=== PATIENT | female | born 1980 | race American Indian/Alaskan Native ===

== ENCOUNTER 2017-03-14 19:15 | Emergency (ER) | payer MEDICAID, OTHER ==
[2017-03-14 19:32] VITALS: BP 131/71
--- NOTE | 2017-03-14 20:03 | EDM.PDOC ---
ED HPI GENERAL MEDICAL PROBLEM - General Chief Complaint: Chest Pain Stated Complaint: [id number] PAIN UNDER ARM Time Seen by Provider: 03/14/17 19:40 Source of Information: Reports: Patient History Limitations: Reports: No Limitations - History of Present Illness INITIAL COMMENTS - FREE TEXT/NARRATIVE: c/o of right chest pain starting under arm and extending to breast. Denies any change in activity, no injury,. Pain present on arising on Monday and has continued to worsen . 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: Endocrine/Metabolic History: Reports: Obesity/BMI 30+ - Past Surgical History Female Surgical History: Reports: Hysterectomy Social & Family History - Family History Family Medical History: Noncontributory - Tobacco Use Smoking Status *Q: Current Every Day Smoker Years of Tobacco use: 1 Packs/Tins Daily: 0.2 Second Hand Smoke Exposure: Yes - Caffeine Use Caffeine Use: Reports: Coffee, Soda - Alcohol Use Days Per Week of Alcohol Use: 0 - Recreational Drug Use Recreational Drug Use: No - Living Situation & Occupation Living situation: Reports: with Family ED ROS GENERAL - Review of Systems Review Of Systems: See Below Constitutional: Denies: Fever, Chills HEENT: Reports: No Symptoms Respiratory: Reports: No Symptoms Cardiovascular: Reports: No Symptoms Musculoskeletal: Reports: Other (pain to right anterior lateral chest worse with movment and position. Tender to touch and breast feels "puffy") Skin: Denies: No Symptoms ED EXAM, GENERAL - Physical Exam Exam: See Below Exam Limited By: No Limitations General Appearance: Alert, Moderate Distress Respiratory/Chest: Other (right axillary and lateral right breast lymphadenopathy, very tender with paslpation of area with tearing o eyes and guarding of area. slight warmth, no redness. no tenderness around areola, no redness under breast. .) Course - Vital Signs Last Recorded V/S: Last Vital Signs Temp 98.5 F 03/14/17 19:21 Pulse 71 03/14/17 19:21 Resp 18 03/14/17 19:21 BP 131/71 03/14/17 19:21 Pulse Ox 98 03/14/17 19:21 - Orders/Labs/Meds Meds: Medications Discontinued Medications Generic Name Dose Route Start Last Admin Trade Name Tammy PRN Reason Stop Dose Admin Hydrocodone Bitart/Acetaminophen 1 tab 03/14/17 20:06 03/14/17 20:15 [place] 325-10 Mg PO 03/14/17 20:07 1 tab ONETIME ONE Administration Doxycycline Hyclate 100 mg 03/14/17 20:06 03/14/17 20:15 Vibramycin PO 03/14/17 20:07 100 mg ONETIME ONE Administration Departure - Departure Time of Disposition: 20:05 Disposition: Home, Self-Care 01 Condition: Good Clinical Impression: Mastitis - Discharge Information Instructions: Breast Tenderness Forms: ED Department Discharge Additional Instructions: alternate tylenol 650mg with ibuprofen 600 every 4 hours as needed for discomfort warm pack to right breast doxycycline 100mg twice daily for one week follow up in clinic next week for recheck, if continued tenderness and swelling , ultrasound to be considered
[2017-03-14] MEDS ORDERED: Acetaminophen/HYDROcodone 325-10 MG Tab PO ONE (20:06)
[2017-03-14] MEDS ORDERED: Doxycycline 100 MG Cap PO ONE (20:06)
== END 2017-03-14 20:19 | disposition home or self-care (01) ==
LOC: DL.ED 19:15
DX: N61.0 Mastitis without abscess (principal); F17.210 Nicotine dependence, cigarettes, uncomplicated; Z90.710 Acquired absence of both cervix and uterus
CPT/HCPCS: 99283; A9270

== ENCOUNTER 2018-08-26 19:01 | Emergency (ER) | payer MEDICAID, OTHER ==
[2018-08-26] MEDS ORDERED: Sodium Chloride 0.9% 1,000 ML IV ONE (19:20)
[2018-08-26] MEDS ORDERED: LORazepam 2 MG/ML Syringe IVPUSH ONE (19:20)
[2018-08-26 19:27] VITALS: BP 172/93
[2018-08-26 20:22] LABS: ANION GAP 14.5; CHLORIDE,CL 102 mmol/L (101-111); SODIUM,NA 137 mmol/L (135-145)
--- NOTE | 2018-08-26 21:02 | EDM.PDOCBH ---
ED HPI GENERAL MEDICAL PROBLEM - General Chief Complaint: Drug or Alcohol Abuse Stated Complaint: UNKNOWN Time Seen by Provider: 08/26/18 19:20 Source of Information: Reports: Patient, RN Notes Reviewed History Limitations: Reports: No Limitations - History of Present Illness INITIAL COMMENTS - FREE TEXT/NARRATIVE: ED with c/o chest pressure , rapid heart , twitching anxiety. Admits to using IV meth twice today and taking 5 100mg tramadol, Took 3 then 2 again around 3 pm. Stated was caring for 2 year old granddaughter and needed some energy. Reported to regular but not "often" use of meth and daily use of Tramadol of usually 2 in am and 2 again in afternoon or evening. Has not been in treatment . Denied use of alcohol. Does not want daughters to know. Reported is aware today. Mid-Sternal Chest Pain Score (Numeric/FACES): 6 - Related Data Allergies Allergy/AdvReac Type Severity Reaction Status Date / Time No Known Allergies Allergy Verified 08/26/18 21:01 Home Meds: Home Meds . 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: Endocrine/Metabolic History: Reports: Obesity/BMI 30+ - Past Surgical History Female Surgical History: Reports: Hysterectomy Social & Family History - Family History Family Medical History: Noncontributory - Tobacco Use Smoking Status *Q: Current Every Day Smoker Years of Tobacco use: 20 Packs/Tins Daily: 0.5 Second Hand Smoke Exposure: Yes - Caffeine Use Caffeine Use: Reports: Coffee - Recreational Drug Use Recreational Drug Use: Yes Recreational Drug Type: Reports: Methamphetamine Recreational Drug Use Frequency: Daily - Living Situation & Occupation Living situation: Reports: with Family ED ROS GENERAL - Review of Systems Review Of Systems: ROS reveals no pertinent complaints other than HPI. ED EXAM, BEHAVIORAL HEALTH - Physical Exam Exam: See Below Exam Limited By: No Limitations General Appearance: Alert, Anxious, Mild Distress Eye Exam: Bilateral Eye: EOMI (5mm), PERRL Ears: Normal External Exam, Hearing Grossly Normal Nose: Normal Inspection Throat/Mouth: Normal Lips, Normal Voice, Other (rhythmic jaw movments). No: Normal Teeth (decay) Head: Atraumatic, Normocephalic Neck: Normal Inspection, Full Range of Motion Respiratory/Chest: No Respiratory Distress, Lungs Clear, Normal Breath Sounds Cardiovascular: Normal Peripheral Pulses, Regular Rate, Rhythm GI/Abdominal: Normal Bowel Sounds, Soft, Non-Tender, No Distention. No: Distended, Guarding Extremities: Other (track tee bilateral anticubital) Neurological: Alert, Normal Cognition, Oriented x 3 Psychiatric: Alert, Restless, Poor Eye Contact. No: Suicidal Plan, Suicidal Thoughts Skin Exam: Warm, Dry, Intact, Normal color, No rash EKG INTERPRETATION EKG Date: 08/27/18 Rhythm: NSR COURSE, BEHAVIORAL HEALTH COMP - Course Vital Signs: Last Vital Signs Temp 97.7 F 08/26/18 19:10 Pulse 102 H 08/26/18 19:10 Resp 22 H 08/26/18 19:10 BP 172/93 H 08/26/18 19:10 Pulse Ox 99 08/26/18 19:10 Orders, Labs, Meds: Active Orders 24 hr Category Date Time Status EKG 12 Lead [EKG Documentation Completion] [RC] STAT Care 08/26/18 19:38 Active CULTURE URINE [RM] Stat Lab 08/26/18 20:20 Received Laboratory Tests 08/26/18 08/26/18 08/26/18 Range/Units 19:53 19:53 19:53 WBC 7.2 (5.0-10.0) 10^3/uL RBC 4.85 (4.2-5.4) 10^6/uL Hgb 12.8 D (12.0-16.0) g/dL Hct 39.5 (37.0-47.0) % MCV 81.4 (80-100) fL MCH 26.4 L (27.0-34.0) pg MCHC 32.4 L (33.0-35.0) g/dL Plt Count 180 (150-450) 10^3/uL Neut % (Auto) 49.7 (42.2-75.2) % Lymph % (Auto) 36.9 (20.5-50.1) % [place] % (Auto) 10.1 H (2-8) % Eos % (Auto) 2.9 (1.0-3.0) % Baso % (Auto) 0.4 (0.0-1.0) % Add Manual Diff Yes Neutrophils % (Manual) 53 (42-75) % Lymphocytes % (Manual) 39 (20-50) % Monocytes % (Manual) 6 (2-8) % Eosinophils % (Manual) 2 (1-3) % Sodium 137 (135-145) mmol/L Potassium 3.5 L (3.6-5.0) mmol/L Chloride 102 (101-111) mmol/L Carbon Dioxide 24.0 (21.0-31.0) mmol/L Anion Gap 14.5 BUN 12 (7-18) mg/dL Creatinine 0.6 (0.6-1.3) mg/dL Est Cr Clr Drug Dosing 121.20 mL/min Estimated GFR (MDRD) > 60 BUN/Creatinine Ratio 20.00 Glucose 77 (74-105) mg/dL Calcium 8.2 L (8.4-10.2) mg/dl Magnesium 1.9 (1.8-2.5) mg/dL Total Bilirubin 0.5 (0.2-1.0) mg/dL AST 18 (10-42) IU/L ALT 17 (10-60) IU/L Alkaline Phosphatase 99 (42-121) IU/L CK-MB (CK-2) 2.00 (0.4-4.7) ng/mL Troponin I < 0.02 (0.00-0.02) ng/ml Total Protein 7.0 (6.7-8.2) g/dl Albumin 3.4 (3.2-5.5) g/dl Globulin 3.6 Albumin/Globulin Ratio 0.94 Amylase 26 L (28-100) U/L Urine Color (YELLOW) Urine Appearance (CLEAR) Urine pH (5.0-9.0) Ur Specific [place] (1.005-1.030) Urine Protein (NEGATIVE) Urine Glucose (UA) (NEGATIVE) Urine Ketones (NEGATIVE) Urine Occult Blood (NEGATIVE) Urine Nitrite (NEGATIVE) Urine Bilirubin (NEGATIVE) Urine Urobilinogen (0.2-1.0) mg/dL Ur Leukocyte Esterase (NEGATIVE) Urine RBC /HPF Urine WBC (0-5/HPF) /HPF Ur Epithelial Cells /HPF Amorphous Sediment (0/HPF) /HPF Urine Bacteria (0-FEW/HPF) /HPF Urine Opiates Screen (NEGATIVE) Ur Oxycodone Screen (NEGATIVE) Urine Methadone Screen (NEGATIVE) Ur Barbiturates Screen (NEGATIVE) U Tricyclic Antidepress (NEGATIVE) Ur Phencyclidine Scrn (NEGATIVE) Ur Amphetamine Screen (NEGATIVE) U Methamphetamines Scrn (NEGATIVE) Urine MDMA Screen (NEGATIVE) U Benzodiazepines Scrn (NEGATIVE) Urine Cocaine Screen (NEGATIVE) U Marijuana (THC) Screen (NEGATIVE) 08/26/18 08/26/18 Range/Units 20:20 20:20 WBC (5.0-10.0) 10^3/uL RBC (4.2-5.4) 10^6/uL Hgb (12.0-16.0) g/dL Hct (37.0-47.0) % MCV (80-100) fL MCH (27.0-34.0) pg MCHC (33.0-35.0) g/dL Plt Count (150-450) 10^3/uL Neut % (Auto) (42.2-75.2) % Lymph % (Auto) (20.5-50.1) % [place] % (Auto) (2-8) % Eos % (Auto) (1.0-3.0) % Baso % (Auto) (0.0-1.0) % Add Manual Diff Neutrophils % (Manual) (42-75) % Lymphocytes % (Manual) (20-50) % Monocytes % (Manual) (2-8) % Eosinophils % (Manual) (1-3) % Sodium (135-145) mmol/L Potassium (3.6-5.0) mmol/L Chloride (101-111) mmol/L Carbon Dioxide (21.0-31.0) mmol/L Anion Gap BUN (7-18) mg/dL Creatinine (0.6-1.3) mg/dL Est Cr Clr Drug Dosing mL/min Estimated GFR (MDRD) BUN/Creatinine Ratio Glucose (74-105) mg/dL Calcium (8.4-10.2) mg/dl Magnesium (1.8-2.5) mg/dL Total Bilirubin (0.2-1.0) mg/dL AST (10-42) IU/L ALT (10-60) IU/L Alkaline Phosphatase (42-121) IU/L CK-MB (CK-2) (0.4-4.7) ng/mL Troponin I (0.00-0.02) ng/ml Total Protein (6.7-8.2) g/dl Albumin (3.2-5.5) g/dl Globulin Albumin/Globulin Ratio Amylase (28-100) U/L Urine Color Yellow (YELLOW) Urine Appearance Turbid (CLEAR) Urine pH 7.0 (5.0-9.0) Ur Specific [place] 1.025 (1.005-1.030) Urine Protein Negative (NEGATIVE) Urine Glucose (UA) Negative (NEGATIVE) Urine Ketones Negative (NEGATIVE) Urine Occult Blood Negative (NEGATIVE) Urine Nitrite Positive H (NEGATIVE) Urine Bilirubin Negative (NEGATIVE) Urine Urobilinogen 0.2 (0.2-1.0) mg/dL Ur Leukocyte Esterase Negative (NEGATIVE) Urine RBC 0-5 /HPF Urine WBC 0-5 (0-5/HPF) /HPF Ur Epithelial Cells Moderate H /HPF Amorphous Sediment Few (0/HPF) /HPF Urine Bacteria Many H (0-FEW/HPF) /HPF Urine Opiates Screen Negative (NEGATIVE) Ur Oxycodone Screen Positive H (NEGATIVE) Urine Methadone Screen Negative (NEGATIVE) Ur Barbiturates Screen Negative (NEGATIVE) U Tricyclic Antidepress Negative (NEGATIVE) Ur Phencyclidine Scrn Negative (NEGATIVE) Ur Amphetamine Screen Positive H (NEGATIVE) U Methamphetamines Scrn Positive H (NEGATIVE) Urine MDMA Screen Positive H (NEGATIVE) U Benzodiazepines Scrn Negative (NEGATIVE) Urine Cocaine Screen Negative (NEGATIVE) U Marijuana (THC) Screen Positive H (NEGATIVE) Medications Discontinued Medications Generic Name Dose Route Start Last Admin Trade Name Freq PRN Reason Stop Dose Admin Sodium Chloride 1,000 mls @ 999 mls/hr 08/26/18 19:20 08/26/18 19:27 Normal Saline IV 08/26/18 20:20 999 mls/hr .BOLUS ONE Administration Lorazepam 1 mg 08/26/18 19:20 08/26/18 19:27 Ativan IVPUSH 08/26/18 19:21 1 mg ONETIME ONE Administration Departure - Departure Time of Disposition: 20:59 Disposition: Home, Self-Care 01 Condition: Good Clinical Impression: Polysubstance abuse, IVDU (intravenous drug user) - Discharge Information *PRESCRIPTION DRUG MONITORING PROGRAM REVIEWED*: No *COPY OF PRESCRIPTION DRUG MONITORING REPORT IN PATIENT CLAUDY: No Instructions: Substance Use Disorder and Mental Illness Forms: ED Department Discharge Additional Instructions: stop abusing drugs follow up with addiction and mental health counselor rest increase fluids avoid caffeine or energy drinks - My Orders Last 24 Hours: My Active Orders 08/26/18 19:38 EKG 12 Lead [EKG Documentation Completion] [RC] STAT 08/26/18 20:20 CULTURE URINE [] Stat - Assessment/Plan Last 24 Hours: My Active Orders 08/26/18 19:38 EKG 12 Lead [EKG Documentation Completion] [RC] STAT 08/26/18 20:20 CULTURE URINE [] Stat
== END 2018-08-26 21:10 | disposition home or self-care (01) ==
LOC: DL.ED 19:01
DX: F19.10 Other psychoactive substance abuse, uncomplicated (principal); F15.10 Other stimulant abuse, uncomplicated; E66.9 Obesity, unspecified; F17.210 Nicotine dependence, cigarettes, uncomplicated; Z90.710 Acquired absence of both cervix and uterus
CPT/HCPCS: 36415; 80053; 80305; 81001; 82150; 82553; 83735; 84484; 85025; 87086; 93005; 96365; 96375; 99285; J2060; J7030; 87088; 87186

== ENCOUNTER 2019-12-29 16:46 | Emergency (ER) | payer MEDICAID, OTHER ==
[2019-12-29 17:02] VITALS: BP 146/98; PULSE 93
[2019-12-29] MEDS ORDERED: Ketorolac 30 MG/ML SDV IM ONE (17:08)
--- NOTE | 2019-12-29 17:30 | CR ---
PROCEDURE INFORMATION: Exam: XR Left Ribs with PA Chest, 3 Views Exam date and time: 12/29/2019 5:12 PM Age: 39 years old Clinical indication: Other: Bb tee area of pain--no known trauma; Additional info: Left anterior/lateral chest wall pain TECHNIQUE: Imaging protocol: XR Left ribs 3 views with PA chest. COMPARISON: CR CHEST PA/LAT 04/02/2011 4:38 PM FINDINGS: Lungs: The visualized lung patel are clear. Pleural space: No pneumothorax. No evidence of pleural effusion. Heart/Mediastinum: Visualized mediastinal structures are unremarkable. Bones/joints: No definite acute fractures are identified. A metallic BB marker was placed at the site of clinical suspicion/pain. This projects near the end of the lateral left 11th rib. There is some questionable slight lateral cortical irregularity of the 11th rib in this region which might represent a nondisplaced rib fracture although this is not definitive. There is a chronic appearing fracture involving the left anterolateral 5th rib, with hypertrophic callus. No blastic or lytic lesions. Glenohumeral alignment and a.c. joint alignment are normal. Other findings: Visualized upper abdominal structures are unremarkable. IMPRESSION: 1. No definite acute fractures. 2. Questionable slight superficial contour irregularity in the left lateral 11th rib near the BB marker which might represent a nondisplaced rib fracture although this is not definitive. 3. Chronic appearing fracture of the left anterolateral 5th rib with callus formation.
[2019-12-29 17:47] LABS: ANION GAP 10.7 mEq/L (7-13); CHLORIDE,CL 103 mmol/L (98-107); SODIUM,NA 139 mmol/L (136-145)
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
== END 2019-12-29 18:15 | disposition home or self-care (01) ==
LOC: DL.ED 16:46
DX: S22.32XD Fracture of one rib, left side, subsequent encounter for fracture with routine healing (principal); E66.9 Obesity, unspecified; F17.210 Nicotine dependence, cigarettes, uncomplicated; Z68.34 Body mass index [BMI] 34.0-34.9, adult; X58.XXXA Exposure to other specified factors, initial encounter
CPT/HCPCS: 36415; 71101; 80053; 80305; 81003; 81025; 85025; 85379; 96372; 99283; J1885

== ENCOUNTER 2020-07-26 20:08 | Emergency (ER) | payer SELFPAY ==
[2020-07-26] MEDS ORDERED: Iopamidol 612 MG/ML 100 ML Bottle IVPUSH ONE (20:26)
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
[2020-07-26 21:00] VITALS: BP 127/79; PULSE 91
[2020-07-26 21:00] LABS: PTT,PARTIAL THROMBOPLSTIN TIME 25.7 SEC (22.0-34.0)
[2020-07-26 21:01] LABS: ANION GAP 10.4 mEq/L (7-13); CHLORIDE,CL 104 mmol/L (98-107); SODIUM,NA 141 mmol/L (136-145)
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
[2020-07-26] MEDS ORDERED: Acetaminophen/HYDROcodone 325-10 MG Tab PO ONE (21:46)
== END 2020-07-26 22:09 | disposition home or self-care (01) ==
LOC: DL.ED 20:08
DX: S32.029A Unspecified fracture of second lumbar vertebra, initial encounter for closed fracture (principal); S80.02XA Contusion of left knee, initial encounter; E66.9 Obesity, unspecified; Z68.34 Body mass index [BMI] 34.0-34.9, adult; X58.XXXA Exposure to other specified factors, initial encounter
CPT/HCPCS: 36415; 70450; 71260; 72125; 73560; 74177; 80053; 80307; 85025; 85610; 85730; 99284; A9270; Q9967

== ENCOUNTER 2020-11-07 12:11 | Emergency (ER) | payer SELFPAY ==
[2020-11-07 12:47] VITALS: BP 114/58; PULSE 96
[2020-11-07] MEDS ORDERED: Sodium Chloride 0.9% 1,000 ML IV ONE (12:56)
[2020-11-07 13:48] LABS: ANION GAP 14.1 mEq/L (7-13); CHLORIDE,CL 109 mmol/L (98-107); SODIUM,NA 147 mmol/L (136-145)
[2020-11-07] MEDS ORDERED: 50% Dextrose in Water 50 ML Syringe IVPUSH ONE ×2 (13:49→14:24)
[2020-11-07 13:50] LABS: ACETAMINOPHEN 0 ug/mL (10-30 (Therapeutic))
[2020-11-07] MEDS ORDERED: 50% Dextrose in Water 50 ML Syringe ONE (13:50)
[2020-11-07] MEDS ORDERED: Potassium Chloride 20 MEQ in Premix Bag 1 BAG IV ONE (13:54)
--- NOTE | 2020-11-07 14:05 | EDM.PDOC ---
ED HPI GENERAL MEDICAL PROBLEM - General Chief Complaint: Drug or Alcohol Abuse Stated Complaint: BY AMBULANCE Time Seen by Provider: 11/07/20 12:35 Source of Information: Reports: EMS, EMS Notes Reviewed, RN, RN Notes Reviewed History Limitations: Reports: Altered Mental Status - History of Present Illness INITIAL COMMENTS - FREE TEXT/NARRATIVE: Shelley is a 40 y/o female who presents to the ED via [facility] due to family complaints of altered mental status. Per EMS report, the patient's called dispatch with complaints of being unable to wake his . The patient's reported she was alert, talkative, and well this morning when he left for work but noted she was very sleepy and could not maintain a conversation when he returned home for lunch. The patient's did not feel there was any trauma or fall during his time gone as she was resting on the couch when he came home. He denies history of cardiac events, stroke, chronic health conditions, or recent illness. The patient's reports to EMS that the patient does use methamphetamines occasionally; he is unsure if she has used today. BS en route 229. Narcan administered by EMS en route x2; no significant response noted. Upon arrival to this facility the patient's GCS is 13; she is lethargic but opens her eyes to voice and is able to state her name, she is disoriented to time, place, and situation. No evidence of trauma, including no scalp/facial/chest/back/extremity hematoma, abrasion, ecchymosis, laceration, or deformity. - Related Data Allergies Allergy/AdvReac Type Severity Reaction Status Date / Time No Known Allergies Allergy Verified 11/07/20 12:48 Home Meds: Home Meds . [No Known Home Meds] 01/06/16 [History] Past Medical History Cardiovascular History: Reports: Heart Murmur [employer] History: Reports: Endocrine/Metabolic History: Reports: Obesity/BMI 30+ Dermatologic History: Reports: None - Past Surgical History Female Surgical History: Reports: Hysterectomy Social & Family History - Family History Family Medical History: No Pertinent Family History - Tobacco Use Tobacco Use Status *Q: Never Tobacco User Second Hand Smoke Exposure: No - Caffeine Use Caffeine Use: Reports: Soda - Recreational Drug Use Recreational Drug Use: No - Living Situation & Occupation Living situation: Reports: with Family ED ROS GENERAL - Review of Systems Review Of Systems: Unable To Obtain Reason Not Obtained: AMS - Physical Exam Exam: See Below Exam Limited By: Altered Mental Status General Appearance: Lethargic Eye Exam: Bilateral Eye: PERRL (4mm), Other (Unable to assess d/t AMS) Ears: Normal External Exam, Normal Canal, Hearing Grossly Normal, Normal TMs Nose: Normal Inspection, Normal Mucosa, No Blood Throat/Mouth: Normal Gums, Normal Voice, No Airway Compromise. No: Normal Lips (Dry cracked), Normal Teeth (Poor dentition), Normal Oropharynx (Dry mucous membranes), Evidence of Tongue Biting Head Exam: Atraumatic, Normocephalic Neck: Normal Inspection, Supple, Non-Tender, Full Range of Motion. No: Lymphadenopathy (L), Lymphadenopathy (R) Respiratory/Chest: No Respiratory Distress, Lungs Clear, No Accessory Muscle Use, Chest Non-Tender, Other (Snoring respirations) Cardiovascular: Normal Peripheral Pulses, Regular Rate, Rhythm, No Edema, No Gallop, No JVD, No Murmur, No Rub GI/Abdominal: Soft, Non-Tender, No Organomegaly, No Distention, No Abnormal Bruit, No Mass, Pelvis Stable, Abnormal Bowel Sounds (Hypoactive bowel sounds) (Female) Exam: Deferred Rectal (Female) Exam: Deferred Neuro Exam (Abbreviated): Disoriented, Slow to Respond, Memory Loss Remote Antonia nts, Memory Loss Recent Events, Sensory/Motor Deficit Back Exam: Normal Inspection, Full Range of Motion. No: CVA Tenderness (L), CVA Tenderness (R) Extremities: Normal Inspection, Normal Range of Motion, Non-Tender, No Pedal Edema, Normal Capillary Refill Skin Exam: Warm, Dry, Intact, Normal Color, No Rash. No: Ecchymosis, Erythema, Jaundice, Mottled, Pallor, Petechiae, Wound/Incision #1 Interpretation EKG Date: 11/07/20 Time: 13:58 Rhythm: Other (Sinus Tachycardia) Rate (Beats/Min): 101 [place]lin: LAD-Left Hamlin Deviation P-Wave: Present QRS: RBBB ST-T: Normal QT: Normal PA/PQ Interval: 0.203 Comparison: No Change EKG Interpretation Comments: Sinus Tachycardia; No evidence of acute myocardial ischemia Course - Vital Signs Last Recorded V/S: Last Vital Signs Temp 97.3 F 0515/21 12:34 Pulse 96 11/07/20 12:46 Resp 15 11/07/20 12:46 BP 114/58 L 11/07/20 12:46 Pulse Ox 95 11/07/20 12:46 - Orders/Labs/Meds Labs: Laboratory Tests 11/07/20 11/07/20 11/07/20 Range/Units 13:15 13:15 13:15 WBC 17.0 H (5.0-10.0) 10^3/uL RBC 5.02 (4.2-5.4) 10^6/uL Hgb 13.0 (12.0-16.0) g/dL Hct 42.4 (37.0-47.0) % MCV 84.5 (80-100) fL MCH 25.9 L (27.0-34.0) pg MCHC 30.7 L (33.0-35.0) g/dL Plt Count 202 (150-450) 10^3/uL Neut % (Auto) 88.3 H (42.2-75.2) % Lymph % (Auto) 7.1 L (20.5-50.1) % [place] % (Auto) 4.4 (2-8) % Eos % (Auto) 0.1 L (1.0-3.0) % Baso % (Auto) 0.1 (0.0-1.0) % Sodium 147 H (136-145) mmol/L Potassium 3.1 L (3.5-5.1) mmol/L Chloride 109 H (98-107) mmol/L Carbon Dioxide 27 (21-32) mmol/L Anion Gap 14.1 H (7-13) mEq/L BUN 19 H (7-18) mg/dL Creatinine 1.08 H (0.55-1.02) mg/dL Est Cr Clr Drug Dosing TNP Estimated GFR (MDRD) 56 BUN/Creatinine Ratio 17.6 (No establ ref range) Glucose 23 L* (70-99) mg/dL POC Glucose (70-99) mg/dL Lactic Acid (0.4-2.0) mmol/L Calcium 7.7 L (8.5-10.1) mg/dL Total Bilirubin 0.4 (0.2-1.0) mg/dL AST 165 H (15-37) U/L ALT 103 H (14-59) U/L Alkaline Phosphatase 147 H (46-116) U/L Ammonia (11-32) umol/L Troponin I 0.381 H* (0.000-0.056) ng/mL Total Protein 7.0 (6.4-8.2) g/dL Albumin 3.1 L (3.4-5.0) g/dL Globulin 3.9 Albumin/Globulin Ratio 0.79 Salicylates < 2.8 L (2.8-20(Therapeutic)) mg/dL Urine Opiates Screen (NEGATIVE) Ur Oxycodone Screen (NEGATIVE) Urine Methadone Screen (NEGATIVE) Acetaminophen 0 L (10-30 (Therapeutic)) ug/mL Ur Barbiturates Screen (NEGATIVE) U Tricyclic Antidepress (NEGATIVE) Ur Phencyclidine Scrn (NEGATIVE) Ur Amphetamine Screen (NEGATIVE) U Methamphetamines Scrn (NEGATIVE) Urine MDMA Screen (NEGATIVE) U Benzodiazepines Scrn (NEGATIVE) Urine Cocaine Screen (NEGATIVE) U Marijuana (THC) Screen (NEGATIVE) Ethyl Alcohol 3 (0) mg/dL 11/07/20 11/07/20 11/07/20 Range/Units 14:01 14:03 14:23 WBC (5.0-10.0) 10^3/uL RBC (4.2-5.4) 10^6/uL Hgb (12.0-16.0) g/dL Hct (37.0-47.0) % MCV (80-100) fL MCH (27.0-34.0) pg MCHC (33.0-35.0) g/dL Plt Count (150-450) 10^3/uL Neut % (Auto) (42.2-75.2) % Lymph % (Auto) (20.5-50.1) % [place] % (Auto) (2-8) % Eos % (Auto) (1.0-3.0) % Baso % (Auto) (0.0-1.0) % Sodium (136-145) mmol/L Potassium (3.5-5.1) mmol/L Chloride (98-107) mmol/L Carbon Dioxide (21-32) mmol/L Anion Gap (7-13) mEq/L BUN (7-18) mg/dL Creatinine (0.55-1.02) mg/dL Est Cr Clr Drug Dosing Estimated GFR (MDRD) BUN/Creatinine Ratio (No establ ref range) Glucose (70-99) mg/dL POC Glucose 144 H 65 L (70-99) mg/dL Lactic Acid (0.4-2.0) mmol/L Calcium (8.5-10.1) mg/dL Total Bilirubin (0.2-1.0) mg/dL AST (15-37) U/L ALT (14-59) U/L Alkaline Phosphatase (46-116) U/L Ammonia (11-32) umol/L Troponin I (0.000-0.056) ng/mL Total Protein (6.4-8.2) g/dL Albumin (3.4-5.0) g/dL Globulin Albumin/Globulin Ratio Salicylates (2.8-20(Therapeutic)) mg/dL Urine Opiates Screen Negative (NEGATIVE) Ur Oxycodone Screen Negative (NEGATIVE) Urine Methadone Screen Negative (NEGATIVE) Acetaminophen (10-30 (Therapeutic)) ug/mL Ur Barbiturates Screen Negative (NEGATIVE) U Tricyclic Antidepress Negative (NEGATIVE) Ur Phencyclidine Scrn Negative (NEGATIVE) Ur Amphetamine Screen Positive H (NEGATIVE) U Methamphetamines Scrn Positive H (NEGATIVE) Urine MDMA Screen Negative (NEGATIVE) U Benzodiazepines Scrn Negative (NEGATIVE) Urine Cocaine Screen Negative (NEGATIVE) U Marijuana (THC) Screen Positive H (NEGATIVE) Ethyl Alcohol (0) mg/dL 11/07/20 11/07/20 11/07/20 Range/Units 14:43 14:58 14:58 WBC (5.0-10.0) 10^3/uL RBC (4.2-5.4) 10^6/uL Hgb (12.0-16.0) g/dL Hct (37.0-47.0) % MCV (80-100) fL MCH (27.0-34.0) pg MCHC (33.0-35.0) g/dL Plt Count (150-450) 10^3/uL Neut % (Auto) (42.2-75.2) % Lymph % (Auto) (20.5-50.1) % [place] % (Auto) (2-8) % Eos % (Auto) (1.0-3.0) % Baso % (Auto) (0.0-1.0) % Sodium (136-145) mmol/L Potassium (3.5-5.1) mmol/L Chloride (98-107) mmol/L Carbon Dioxide (21-32) mmol/L Anion Gap (7-13) mEq/L BUN (7-18) mg/dL Creatinine (0.55-1.02) mg/dL Est Cr Clr Drug Dosing Estimated GFR (MDRD) BUN/Creatinine Ratio (No establ ref range) Glucose (70-99) mg/dL POC Glucose 142 H (70-99) mg/dL Lactic Acid 1.5 (0.4-2.0) mmol/L Calcium (8.5-10.1) mg/dL Total Bilirubin (0.2-1.0) mg/dL AST (15-37) U/L ALT (14-59) U/L Alkaline Phosphatase (46-116) U/L Ammonia (11-32) umol/L Troponin I 0.778 H* (0.000-0.056) ng/mL Total Protein (6.4-8.2) g/dL Albumin (3.4-5.0) g/dL Globulin Albumin/Globulin Ratio Salicylates (2.8-20(Therapeutic)) mg/dL Urine Opiates Screen (NEGATIVE) Ur Oxycodone Screen (NEGATIVE) Urine Methadone Screen (NEGATIVE) Acetaminophen (10-30 (Therapeutic)) ug/mL Ur Barbiturates Screen (NEGATIVE) U Tricyclic Antidepress (NEGATIVE) Ur Phencyclidine Scrn (NEGATIVE) Ur Amphetamine Screen (NEGATIVE) U Methamphetamines Scrn (NEGATIVE) Urine MDMA Screen (NEGATIVE) U Benzodiazepines Scrn (NEGATIVE) Urine Cocaine Screen (NEGATIVE) U Marijuana (THC) Screen (NEGATIVE) Ethyl Alcohol (0) mg/dL 11/07/20 11/07/20 Range/Units 14:58 15:05 WBC (5.0-10.0) 10^3/uL RBC (4.2-5.4) 10^6/uL Hgb (12.0-16.0) g/dL Hct (37.0-47.0) % MCV (80-100) fL MCH (27.0-34.0) pg MCHC (33.0-35.0) g/dL Plt Count (150-450) 10^3/uL Neut % (Auto) (42.2-75.2) % Lymph % (Auto) (20.5-50.1) % [place] % (Auto) (2-8) % Eos % (Auto) (1.0-3.0) % Baso % (Auto) (0.0-1.0) % Sodium (136-145) mmol/L Potassium (3.5-5.1) mmol/L Chloride (98-107) mmol/L Carbon Dioxide (21-32) mmol/L Anion Gap (7-13) mEq/L BUN (7-18) mg/dL Creatinine (0.55-1.02) mg/dL Est Cr Clr Drug Dosing Estimated GFR (MDRD) BUN/Creatinine Ratio (No establ ref range) Glucose (70-99) mg/dL POC Glucose 69 L (70-99) mg/dL Lactic Acid (0.4-2.0) mmol/L Calcium (8.5-10.1) mg/dL Total Bilirubin (0.2-1.0) mg/dL AST (15-37) U/L ALT (14-59) U/L Alkaline Phosphatase (46-116) U/L Ammonia 14 (11-32) umol/L Troponin I (0.000-0.056) ng/mL Total Protein (6.4-8.2) g/dL Albumin (3.4-5.0) g/dL Globulin Albumin/Globulin Ratio Salicylates (2.8-20(Therapeutic)) mg/dL Urine Opiates Screen (NEGATIVE) Ur Oxycodone Screen (NEGATIVE) Urine Methadone Screen (NEGATIVE) Acetaminophen (10-30 (Therapeutic)) ug/mL Ur Barbiturates Screen (NEGATIVE) U Tricyclic Antidepress (NEGATIVE) Ur Phencyclidine Scrn (NEGATIVE) Ur Amphetamine Screen (NEGATIVE) U Methamphetamines Scrn (NEGATIVE) Urine MDMA Screen (NEGATIVE) U Benzodiazepines Scrn (NEGATIVE) Urine Cocaine Screen (NEGATIVE) U Marijuana (THC) Screen (NEGATIVE) Ethyl Alcohol (0) mg/dL Meds: Medications Discontinued Medications Generic Name Dose Route Start Last Admin Trade Name Freq PRN Reason Stop Dose Admin Dextrose/Water 50 ml 11/07/20 13:49 11/07/20 13:53 50% Dextrose In Water 50 Ml Syringe IVPUSH 11/07/20 13:50 50 ml ONETIME ONE Administration Dextrose/Water Confirm 11/07/20 13:50 11/07/20 14:20 50% Dextrose In Water 50 Ml Syringe Administered 11/07/20 13:51 Not Given Dose 50 ml .ROUTE .STK-MED ONE Dextrose/Water 50 ml 11/07/20 14:24 11/07/20 14:28 50% Dextrose In Water 50 Ml Syringe IVPUSH 11/07/20 14:25 50 ml ONETIME ONE Administration Sodium Chloride 1,000 mls @ 999 mls/hr 11/07/20 12:56 11/07/20 13:10 Normal Saline IV 11/07/20 13:56 999 mls/hr .BOLUS ONE Administration Potassium Chloride 20 meq/ 100 mls @ 50 mls/hr 11/07/20 13:54 11/07/20 14:28 Premix IV 11/07/20 15:53 50 mls/hr ONETIME ONE Administration Dextrose/Water 500 mls @ 125 mls/hr 11/07/20 14:35 11/07/20 14:52 Dextrose 10% In Water IV 11/07/20 18:34 125 mls/hr ONETIME ONE Administration - Re-Assessments/Exams Free Text/Narrative Re-Assessment/Exam: 11/07/20 Critical value from lab called; blood glucose on CMP 23 - D50 administered IVP. WBC 17 with left shift. No evidence of anemia via CBC with Hgb 13. Sodium 147. Potassium 3.1; will replace via IVPB. Kidney function slightly reduced with creatinine 1.08, BUN 19, and GFR 56. Liver enzymes elevated with AST 165, ALT 103, and Alk Phos 147. 15 minute POC BS 144. Will recheck again in [address] with no evidence of acute myocardial ischemia. Troponin elevated at 0.3. Patient in and out of Ventricular Bigeminy on bedside monitor. Recheck of POC BS 65. Additional dose of D50 administered. Case discussed with Lazaro, ED physician at [facility] in [place] who kindly agreed to accept patient for transfer. Will hang D10 at 125 mL/hr for transfer. Will obtain head CT prior to transfer at the request of accepting physician as patient remains stable. Patient to transfer via [facility]. Head CT negative for acute processes Tox screen resulted post-discharge; positive for methamphetamines, amphetamines, and THC. Acetaminophen and Salicylates negative. ETOH 3 Patient's to ED post-transfer. Updated on findings of examination, imaging, and lab work as well as transfer to [place]. Patient's verbalized understanding and agreement with the plan of care. Departure - Departure Time of Disposition: 16:47 Disposition: DC/Tfer to Acute Hospital 02 Condition: Fair Clinical Impression: Elevated troponin, Elevated liver enzymes, Ventricular bigeminy Altered mental status Qualifiers: Altered mental status type: unspecified Qualified Code(s): R41.82 - Altered mental status, unspecified - Discharge Information Referrals: PCP,None [Primary Care Provider] - Forms: ED Department Discharge, Interfacility Transfer [facility] Sepsis Event Note (ED) - Evaluation Sepsis Screening Result: No Definite Risk
[2020-11-07] MEDS ORDERED: Dextrose 10% in Water 500 ML IV ONE (14:35)
--- NOTE | 2020-11-07 15:27 | CT ---
PROCEDURE INFORMATION: Exam: CT Head Without Contrast Exam date and time: 11/07/2020 2:56 PM Age: 40 years old Clinical indication: Altered mental status/memory loss; Confusion or disorientation TECHNIQUE: Imaging protocol: Computed tomography of the head without contrast. Radiation optimization: All CT scans at this facility use at least one of these dose optimization techniques: automated exposure control; mA and/or kV adjustment per patient size (includes targeted exams where dose is matched to clinical indication); or iterative reconstruction. COMPARISON: CT Head wo Cont 07/26/2020 8:41 PM FINDINGS: Brain: Normal. No hemorrhage. Unremarkable white matter. No mass effect. Cerebral ventricles: No ventriculomegaly. Bones/joints: Unremarkable. No acute fracture. Paranasal sinuses: Visualized sinuses are unremarkable. No fluid levels. Mastoid air cells: Visualized mastoid air cells are well aerated. Soft tissues: Unremarkable. IMPRESSION: No acute intracranial abnormality.
== END 2020-11-07 15:20 ==
LOC: DL.ED 12:11
DX: R41.82 Altered mental status, unspecified (principal); R79.89 Other specified abnormal findings of blood chemistry; R74.8 Abnormal levels of other serum enzymes; R00.8 Other abnormalities of heart beat; E66.9 Obesity, unspecified
CPT/HCPCS: 36415; 70450; 80053; 80143; 80179; 80305-QW; 80307; 82140; 82947; 83605; 84484; 85025; 93005; 93010; 96365; 96375; 96376; 99284; 99285-25; J3480; J7030

== ENCOUNTER 2021-05-18 21:37 | Emergency (ER) | payer SELFPAY ==
[2021-05-18] MEDS ORDERED: Sodium Chloride 0.9% 1,000 ML IV ONE (21:50)
[2021-05-18 21:53] VITALS: BP 143/86; PULSE 107
[2021-05-18 22:29] LABS: AMPHETAMINES,URINE POSITIVE (NEGATIVE); BARBITURATES,URINE NEGATIVE (NEGATIVE); BENZODIAZEPINE,URINE NEGATIVE (NEGATIVE); MDMA (ECSTASY), URINE POSITIVE (NEGATIVE); METHADONE,URINE NEGATIVE (NEGATIVE); METHAMPHETAMINES,URINE POSITIVE (NEGATIVE); OPIATES,URINE NEGATIVE (NEGATIVE); OXYCODONE,URINE POSITIVE (NEGATIVE); PHENCYCLIDINE,URINE NEGATIVE (NEGATIVE); TCA,URINE NEGATIVE (NEGATIVE)
[2021-05-18 22:38] LABS: ANION GAP 15.3 mEq/L (7-13); CHLORIDE,CL 103 mmol/L (98-107); SODIUM,NA 138 mmol/L (136-145)
[2021-05-18] MEDS ORDERED: Iopamidol 612 MG/ML 100 ML Bottle IVPUSH ONE (22:44)
[2021-05-18] MEDS ORDERED: Famotidine 20 MG/2 ML SDV IVPUSH ONE (23:21)
[2021-05-18] MEDS ORDERED: Ondansetron 4 MG/2 ML SDV IVPUSH ONE (23:21)
[2021-05-18] MEDS ORDERED: Famotidine 20 MG/2 ML SDV ONE (23:34)
--- NOTE | 2021-05-19 00:09 | CT ---
PROCEDURE INFORMATION: Exam: CT Abdomen And Pelvis With Contrast Exam date and time: 05/18/2021 10:55 PM Age: 40 years old Clinical indication: Other: Pain periumbilical to right upper and lower TECHNIQUE: Imaging protocol: Computed tomography of the abdomen and pelvis with contrast. Radiation optimization: All CT scans at this facility use at least one of these dose optimization techniques: automated exposure control; mA and/or kV adjustment per patient size (includes targeted exams where dose is matched to clinical indication); or iterative reconstruction. Contrast material: ISOVUE 300; Contrast volume: 75 ml; Contrast route: INTRAVENOUS (IV); COMPARISON: No relevant prior studies available. FINDINGS: Limitations: Poor contrast opacification. Lungs: The visualized lung bases are unremarkable. No pleural effusion. Liver: Nodular contour of the liver. No evidence of focal hepatic mass. Gallbladder and bile ducts: The gallbladder is surgically absent. Unremarkable post cholecystectomy biliary tree. Pancreas: The pancreas is within normal limits. Spleen: The spleen is normal. Adrenal glands: The adrenal glands are normal. Kidneys and ureters: The kidneys are normal. Stomach and bowel: There is no evidence of bowel obstruction or intestinal perforation. Fluid throughout the non-dilated colon. Distal small bowel anastomotic staple line. No evidence of bowel wall thickening. Appendix: No evidence of appendicitis. Intraperitoneal space: No pneumoperitoneum. No abnormal free fluid or fluid collection. Vasculature: Unremarkable. No abdominal aortic aneurysm. Lymph nodes: There is no evidence of lymphadenopathy. Urinary bladder: The urinary bladder is within normal limits. Reproductive: The uterus appears surgically absent. No evidence of adnexal mass. Bones/joints: Chronic compression deformity of the L2 vertebral body. No acute fracture. Soft tissues: There is a fat-containing periumbilical hernia. No evidence of incarceration. IMPRESSION: 1. Fluid throughout the non-dilated colon compatible with diarrheal illness. 2. Appearance of the liver is suggestive of cirrhosis or high-grade fibrosis.
--- NOTE | 2021-05-19 00:19 | EDM.PDOC ---
ED HPI GENERAL MEDICAL PROBLEM - General Chief Complaint: Abdominal Pain Stated Complaint: BELOW STOMACH PAIN, MAYBE APPENDIX PER PT Time Seen by Provider: 05/18/21 22:00 Source of Information: Reports: Patient History Limitations: Reports: No Limitations - History of Present Illness INITIAL COMMENTS - FREE TEXT/NARRATIVE: ED with c/o abdominal pain, vomiting and diarrhea, started last night. estimates 5 stools today. Chills no fever. No urinary sx. - Related Data Allergies Allergy/AdvReac Type Severity Reaction Status Date / Time No Known Allergies Allergy Verified 05/19/21 00:12 Home Meds: Home Meds . [No Known Home Meds] 01/06/16 [History] Past Medical History Cardiovascular History: Reports: Heart Murmur [employer] History: Reports: Endocrine/Metabolic History: Reports: Obesity/BMI 30+ Dermatologic History: Reports: None - Past Surgical History Female Surgical History: Reports: Hysterectomy Social & Family History - Family History Family Medical History: No Pertinent Family History - Tobacco Use Tobacco Use Status *Q: Current Some Day Tobacco User Years of Tobacco use: 2 Packs/Tins Daily: 0.4 - Caffeine Use Caffeine Use: Reports: Soda - Recreational Drug Use Recreational Drug Use: No Other Recreational Drug Type: states she doesn't use street drugs but visible track tee on arms - Living Situation & Occupation Living situation: Reports: with Family ED ROS GENERAL - Review of Systems Review Of Systems: Comprehensive ROS is negative, except as noted in HPI. ED EXAM, GI/ABD - Physical Exam Exam: See Below Exam Limited By: No Limitations General Appearance: Alert, Mild Distress, Other (dark circles around eyes) Ears: Normal External Exam, Hearing Grossly Normal Nose: Normal Mucosa Throat/Mouth: Normal Inspection Head: Atraumatic, Normocephalic Neck: Normal Inspection Respiratory/Chest: No Respiratory Distress Cardiovascular: Normal Peripheral Pulses GI/Abdominal Exam: Normal Bowel Sounds, Soft, Tender (generalized). No: Distended, Guarding, Rigid Back Exam: Normal Inspection, Full Range of Motion Extremities: Normal Inspection Neurological: Alert, Oriented Psychiatric: Flat Affect Skin Exam: Warm, Dry, Tattoo(s), Other (track tee, ) Course - Vital Signs Last Recorded V/S: Last Vital Signs Temp 98 F 05/18/21 21:50 Pulse 107 H 05/18/21 21:50 Resp 18 05/18/21 21:50 BP 143/86 H 05/18/21 21:50 Pulse Ox 96 05/18/21 21:50 - Orders/Labs/Meds Labs: Laboratory Tests 05/18/21 05/18/21 05/18/21 Range/Units 21:43 21:43 21:48 WBC (5.0-10.0) 10^3/uL RBC (4.2-5.4) 10^6/uL Hgb (12.0-16.0) g/dL Hct (37.0-47.0) % MCV (80-100) fL MCH (27.0-34.0) pg MCHC (33.0-35.0) g/dL Plt Count (150-450) 10^3/uL Neut % (Auto) (42.2-75.2) % Lymph % (Auto) (20.5-50.1) % Loving % (Auto) (2-8) % Eos % (Auto) (1.0-3.0) % Baso % (Auto) (0.0-1.0) % Sodium (136-145) mmol/L Potassium (3.5-5.1) mmol/L Chloride (98-107) mmol/L Carbon Dioxide (21-32) mmol/L Anion Gap (7-13) mEq/L BUN (7-18) mg/dL Creatinine (0.55-1.02) mg/dL Est Cr Clr Drug Dosing mL/min Estimated GFR (MDRD) BUN/Creatinine Ratio (No establ ref range) Glucose (70-99) mg/dL Lactic Acid 0.9 (0.4-2.0) mmol/L Calcium (8.5-10.1) mg/dL Total Bilirubin (0.2-1.0) mg/dL AST (15-37) U/L ALT (14-59) U/L Alkaline Phosphatase (46-116) U/L Total Protein (6.4-8.2) g/dL Albumin (3.4-5.0) g/dL Globulin Albumin/Globulin Ratio Amylase (25-115) U/L Lipase (73-393) U/L Urine Color Dark yellow (YELLOW) Urine Appearance Clear (CLEAR) Urine pH 6.0 (5.0-9.0) Ur Specific Fay >= 1.030 (1.005-1.030) Urine Protein 30 H (NEGATIVE) Urine Glucose (UA) Negative (NEGATIVE) Urine Ketones Negative (NEGATIVE) Urine Occult Blood Trace-intact H (NEGATIVE) Urine Nitrite Negative (NEGATIVE) Urine Bilirubin Negative (NEGATIVE) Urine Urobilinogen 0.2 (0.2-1.0) mg/dL Ur Leukocyte Esterase Negative (NEGATIVE) Urine RBC 0-5 (0-5) /HPF Urine WBC 5-10 H (0-5/HPF) /HPF Ur Epithelial Cells Few (NOT SEEN) /HPF Urine Bacteria Few (0-FEW/HPF) /HPF Urine Mucus Many H (NOT SEEN) /LPF Urine Opiates Screen Negative (NEGATIVE) Ur Oxycodone Screen Positive H (NEGATIVE) Urine Methadone Screen Negative (NEGATIVE) Ur Barbiturates Screen Negative (NEGATIVE) U Tricyclic Antidepress Negative (NEGATIVE) Ur Phencyclidine Scrn Negative (NEGATIVE) Ur Amphetamine Screen Positive H (NEGATIVE) U Methamphetamines Scrn Positive H (NEGATIVE) Urine MDMA Screen Positive H (NEGATIVE) U Benzodiazepines Scrn Negative (NEGATIVE) Urine Cocaine Screen Negative (NEGATIVE) U Marijuana (THC) Screen Positive H (NEGATIVE) Ethyl Alcohol (0) mg/dL 05/18/21 05/18/21 Range/Units 22:05 22:05 WBC 7.6 (5.0-10.0) 10^3/uL RBC 5.59 H (4.2-5.4) 10^6/uL Hgb 14.4 (12.0-16.0) g/dL Hct 44.2 (37.0-47.0) % MCV 79.1 L D (80-100) fL MCH 25.8 L (27.0-34.0) pg MCHC 32.6 L (33.0-35.0) g/dL Plt Count 183 (150-450) 10^3/uL Neut % (Auto) 90.2 H (42.2-75.2) % Lymph % (Auto) 6.3 L (20.5-50.1) % Loving % (Auto) 3.2 (2-8) % Eos % (Auto) 0.3 L (1.0-3.0) % Baso % (Auto) 0.0 (0.0-1.0) % Sodium 138 (136-145) mmol/L Potassium 3.3 L (3.5-5.1) mmol/L Chloride 103 (98-107) mmol/L Carbon Dioxide 23 (21-32) mmol/L Anion Gap 15.3 H (7-13) mEq/L BUN 12 (7-18) mg/dL Creatinine 0.52 L (0.55-1.02) mg/dL Est Cr Clr Drug Dosing 137.05 mL/min Estimated GFR (MDRD) > 60 BUN/Creatinine Ratio 23.1 (No establ ref range) Glucose 124 H (70-99) mg/dL Lactic Acid (0.4-2.0) mmol/L Calcium 8.3 L (8.5-10.1) mg/dL Total Bilirubin 0.7 (0.2-1.0) mg/dL AST 40 H (15-37) U/L ALT 47 (14-59) U/L Alkaline Phosphatase 114 (46-116) U/L Total Protein 7.9 (6.4-8.2) g/dL Albumin 3.6 (3.4-5.0) g/dL Globulin 4.3 Albumin/Globulin Ratio 0.8 Amylase 29 (25-115) U/L Lipase 60 L (73-393) U/L Urine Color (YELLOW) Urine Appearance (CLEAR) Urine pH (5.0-9.0) Ur Specific Fay (1.005-1.030) Urine Protein (NEGATIVE) Urine Glucose (UA) (NEGATIVE) Urine Ketones (NEGATIVE) Urine Occult Blood (NEGATIVE) Urine Nitrite (NEGATIVE) Urine Bilirubin (NEGATIVE) Urine Urobilinogen (0.2-1.0) mg/dL Ur Leukocyte Esterase (NEGATIVE) Urine RBC (0-5) /HPF Urine WBC (0-5/HPF) /HPF Ur Epithelial Cells (NOT SEEN) /HPF Urine Bacteria (0-FEW/HPF) /HPF Urine Mucus (NOT SEEN) /LPF Urine Opiates Screen (NEGATIVE) Ur Oxycodone Screen (NEGATIVE) Urine Methadone Screen (NEGATIVE) Ur Barbiturates Screen (NEGATIVE) U Tricyclic Antidepress (NEGATIVE) Ur Phencyclidine Scrn (NEGATIVE) Ur Amphetamine Screen (NEGATIVE) U Methamphetamines Scrn (NEGATIVE) Urine MDMA Screen (NEGATIVE) U Benzodiazepines Scrn (NEGATIVE) Urine Cocaine Screen (NEGATIVE) U Marijuana (THC) Screen (NEGATIVE) Ethyl Alcohol < 3 (0) mg/dL Meds: Medications Discontinued Medications Generic Name Dose Route Start Last Admin Trade Name Tammy PRN Reason Stop Dose Admin Famotidine 20 mg 05/18/21 23:21 05/18/21 23:40 Famotidine 20 Mg/2 Ml Sdv IVPUSH 05/18/21 23:22 20 mg ONETIME ONE Administration Famotidine Confirm 05/18/21 23:34 05/18/21 23:40 Famotidine 20 Mg/2 Ml Sdv Administered 05/18/21 23:35 Not Given Dose 20 mg .ROUTE .STK-MED ONE Sodium Chloride 1,000 mls @ 999 mls/hr 05/18/21 21:50 05/18/21 22:12 Normal Saline IV 05/18/21 22:50 999 mls/hr .BOLUS ONE Administration Iopamidol 100 ml 05/18/21 22:44 Iopamidol 612 Mg/Ml 100 Ml Bottle IVPUSH 05/18/21 22:45 ONETIME ONE Ondansetron HCl 4 mg 05/18/21 23:21 05/18/21 23:37 Ondansetron 4 Mg/2 Ml Sdv IVPUSH 05/18/21 23:22 4 mg ONETIME ONE Administration Departure - Departure Time of Disposition: 00:16 Disposition: Home, Self-Care 01 Condition: Good Clinical Impression: Gastroenteritis, Positive urine drug screen Abdominal pain Qualifiers: Abdominal location: generalized Qualified Code(s): R10.84 - Generalized abdominal pain - Discharge Information *PRESCRIPTION DRUG MONITORING PROGRAM REVIEWED*: No *COPY OF PRESCRIPTION DRUG MONITORING REPORT IN PATIENT CLAUDY: No Instructions: Diarrhea, Adult, Abdominal Pain, Adult, [id number], Diarrhea, Adult, [id number] Forms: ED Department Discharge Additional Instructions: liquid diet advance slowy, bland low acid increase fluids tylenol 500mg every 4 hours as needed for discomfort Sepsis Event Note (ED) - Evaluation Sepsis Screening Result: No Definite Risk
== END 2021-05-19 00:38 | disposition home or self-care (01) ==
LOC: DL.ED 21:37
DX: K52.9 Noninfective gastroenteritis and colitis, unspecified (principal); R82.5 Elevated urine levels of drugs, medicaments and biological substances; E66.9 Obesity, unspecified; Z68.31 Body mass index [BMI] 31.0-31.9, adult; Z72.0 Tobacco use
CPT/HCPCS: 36415; 74177; 80053; 80305; 80307; 81001; 82150; 83605; 83690; 85025; 87040; 96374; 96375; 99284; J2405; J3490; J7030